=== PATIENT | female | born 1995 | race Caucasian/White ===

== ENCOUNTER → 2022-01-07 | Outpatient (CLI) | payer BC ==
--- NOTE | 2022-01-07 16:35 | Diagnostic Imaging Report ---
INDICATION: patient, survey. TECHNIQUE: Multiple Real-time grayscale images were obtained over the gravid uterus. COMPARISON: None. FINDINGS: A single live intrauterine fetus is seen measuring 19 weeks 4 days by composite measurements with a sonographic EDC of 05/30/2022. The fetus is in breech presentation at this time. The amniotic fluid appears qualitatively normal. The placenta is posterior with no evidence of previa. heart rate is 144 BPM. The cervical length is 3.7 cm. The distance from the placental tip to the internal os was 3.1 cm. The maternal adnexa were not well seen but showed no free fluid. The anatomical survey demonstrates normal appearing kidneys and bladder. A normal appearing stomach is seen. The intracranial ventricles appear normal. The four-chamber heart view appears normal. The three-vessel cord and cord insertion appear normal. Views of the spine are unremarkable. Biometrical measurements are as follows: Biparietal 4.53 cm, age 19 weeks 5 days. Head circumference 17.23 cm, age 19 weeks 6 days. Abdominal circumference 14.09 cm, age 19 weeks 4 days. Femur length 2.85 cm, age 18 weeks 6 days. Sonographic estimate age: 19 weeks 4 days. Sonographic estimated date of delivery: 05/30/2022. Estimated Weight: 280 gm (+/- 41 gm). LMP percentile: 26%. heart rate: 144 beats per minute. number: 1 of 1. IMPRESSION: Single live intrauterine fetus measuring 19 weeks 4 days in size with no detectable anatomic abnormality. Dictated by: Dictated on workstation # [id number]
== END ==
LOC: RAD 09:42
PROVIDERS: ATTEND Obstetrics & Gynecology
DX: Z34.82 Encounter for supervision of other normal pregnancy, second trimester (principal); Z3A.19 19 weeks gestation of pregnancy
CPT/HCPCS: 76805

== ENCOUNTER → 2022-03-05 | Outpatient (CLI) | payer BC, OTHER ==
--- NOTE | 2022-03-05 16:55 | Diagnostic Imaging Report ---
INDICATION: Prior history of 29 week demise TECHNIQUE: Multiple real-time grayscale images were obtained over the gravid uterus. COMPARISON: None FINDINGS: There is a single live intrauterine gestation in breech presentation. The cervix measures 3.4 cm in length. There is no endocervical fluid or funneling seen. The placenta is posterior without evidence of previa. The heart rate measures 129 BPM. The amniotic fluid index measures 17.3 cm. Anatomic survey was not performed at this time. Biometrical measurements are as follows: Biparietal 7.09 cm, age 28 weeks 4 days. Head circumference 26.23 cm, age 28 weeks 4 days. Abdominal circumference 22.60 cm, age 27 weeks 0 days. Femur length 5.16 cm, age 27 weeks 4 days. Sonographic estimate age: 28 weeks 0 days. Sonographic estimated date of delivery: 05/28/2022. Estimated Weight: 1074 gm (+/- 157 gm). LMP percentile: 27%. heart rate: 129 beats per minute. number: 1 of 1. IMPRESSION: 1. Single live intrauterine gestation measuring at 28 weeks and 0 days which is within range of the clinical dates. 2. Breech presentation. Dictated by: Dictated on workstation # [id number]
== END ==
LOC: RAD 10:00
PROVIDERS: ATTEND Obstetrics & Gynecology
DX: O32.1XX0 Maternal care for breech presentation, not applicable or unspecified (principal); Z3A.28 28 weeks gestation of pregnancy
CPT/HCPCS: 76805; 76819

== ENCOUNTER 2022-05-19 05:54 | Inpatient (IN) | payer OTHER ==
[2022-05-19] VITALS (31 sets, daily range): BP systolic 101–137; BP diastolic 6–107
[2022-05-19] MEDS ORDERED: D5 LR IV SOLUTION 1,000 ML IV SCH (06:15)
[2022-05-19 06:35] LABS: BILIRUBIN,URINE NEGATIVE (NEGATIVE); CLARITY,URINE CLEAR; COLOR,URINE YELLOW; GLUCOSE, URINE (UA) NEGATIVE (NEGATIVE); KETONES,URINE NEGATIVE (NEGATIVE); LEUKOCYTE ESTERASE ,URINE NEGATIVE (NEGATIVE); NITRITE,URINE NEGATIVE (NEGATIVE); PH,URINE 6.5 (5-9); PROTEIN,URINE NEGATIVE (NEGATIVE)
[2022-05-19 06:46] LABS: HEMATOCRIT 42 % (35-52); HEMOGLOBIN 14.3 g/dL (11.5-16.0); MEAN CORPUSCULAR HEMOGLOBIN 32 pg (25-34); MEAN CORPUSCULAR VOLUME 95 fL (80-99); WHITE BLOOD COUNT 11.4 10^3/uL (4.3-11.0)
[2022-05-19 06:47] LABS: BASOPHILS % (AUTO) 0 % (0-10); EOSINOPHILS % (AUTO) 0 % (0-10); LYMPHOCYTES # (AUTO) 1.5 10^3/uL (1.0-4.0); LYMPHOCYTES % (AUTO) 13 % (12-44); MEAN CORPUSCULAR HGB CONC 34 g/dL (32-36); MEAN PLATELET VOLUME 11.4 fL (9.0-12.2); MONOCYTES # (AUTO) 0.8 10^3/uL (0.0-1.0); MONOCYTES % (AUTO) 7 % (0-12); NEUTROPHILS # (AUTO) 8.9 10^3/uL (1.8-7.8); NEUTROPHILS % (AUTO) 78 % (42-75); PLATELET COUNT 191 10^3/uL (130-400)
[2022-05-19 06:47] LABS: BACTERIA,URINE NEGATIVE /HPF; RBC,URINE RARE /HPF; SQUAMOUS EPITHELIAL CELL,UR RARE /HPF; WBC,URINE RARE /HPF
--- NOTE | 2022-05-19 06:47 | History & Physical-OB/GYN ---
KARLASTAN 05/19/22 0647: OB - Chief Complaint & HPI Date/Time Date of Admission: Date of Admission: May 19, 2022 at 05:54 Date seen by a Provider: May 19, 2022 Time Seen by a Provider: 06:25 Chief Complaint/History OB-Reason for Admission/Chief: Induction of Labor Hx : 3 Hx Para: 1 Expected Date of Delivery: May 30, 2022 Gestational Age in Weeks: 38 Gestational Age in Days: 3 Indication for induction: other (hx of IUFD at 39 weeks) History of Labs A+ Antibody Neg VDRL NR HBsAg NR HIV NR G/C Neg RI GBS Neg Allergies and Home Medications Allergies Coded Allergies: amoxicillin (Verified Allergy, Unknown, 05/19/22) rash Patient Home Medication List Home Medication List Reviewed: Yes OB - History Hx of Present Care: Yes Ultrasounds: Normal mid trimester US Obstetrical Complications: None Medical Complications: None Information Induced Hypertension: No Maternal Gestational Diabetes: No Hemorrhage: No Obstetrical History Hx : 3 Hx Para: 1 Number of Living Children: 0 Hx Total # of Abortions (Spona: 1 Hx Stillbirth: Yes Hx Induced Hypertens: No Hx Maternal Gestational Diabet: No Hx Hemorrhage: No Patient Past Medical History Hypothyroidism, arthritis Social History/Family History Alcohol Use: Denies Use Recreational Drug Use: No Smoking Cessation: Never smoker Immunizations Influenza Vaccine Up-to-Date: No; Not Current Rubella: immune RPR/VDRL: Negative GBS Status: Negative HBsAG: Negative OB - Admission Exam Physical Exam HEENT: PERRLA Heart: Rhythm Normal Lungs: Clear Abdomen: Gravid Extremities: Edema Reflexes: Normal Heart Rate: 150's Accelerations: Accelerations Present Decelerations: No Decelerations Short Term Variability: Present Skilled Nursing Variability: Average (6-25) Contractions on Admission: 6-10 Minutes Apart Labs Laboratory Tests Test 05/19/22 06:05 05/19/22 06:20 Range/Units OB - Assessment/Plan/Diagnosis Assessment Assessment: induction of labor Admission Dx at 38 weeks 3 days gestational age IOL secondary to history of 39 week IUFD in previous GBS Neg Otherwise uncomplicated Admission Status: Inpatient Order (span 2 midnights) Reason for Inpatient Admission: IOL secondary to history of 39 week IUFD in previous Plan Plan: Induction TARA CARRASQUILLO DO 05/19/22 0911: Allergies and Home Medications Allergies Coded Allergies: amoxicillin (Verified Allergy, Unknown, 05/19/22) rash Supervisory-Addendum Brief Verification & Attestation Participated in pt care: history Personally performed: exam Care discussed with: Medical Student Procedures: n/a Results interpretation: Verified all documentation Verification and Attestation of Medical Student E/M Service A medical student performed and documented this service in my presence. I reviewed and verified all information documented by the medical student and made modifications to such information, when appropriate. I personally performed the physical exam and medical decision making. Tara Carrasquillo May 19, 2022,09:10 STAN ACOSTA May 19, 2022 06:47 TARA CARRASQUILLO DO May 19, 2022 09:11
[2022-05-19] MEDS ORDERED: OXYTOCIN PRE-MIX DRIP 500 ML IV SCH (07:45)
[2022-05-19] MEDS ORDERED: HYDROmorphone 2 MG/ML VIAL (DILAUDID) IV ONE (10:45)
[2022-05-19] MEDS ORDERED: ONDANSETRON 4 MG/2 ML (SDV) Z0FRAN IVP PRN (10:45)
[2022-05-19] MEDS ORDERED: LIDOCAINE 1% INJ 10 ML VIAL ONE (12:40)
[2022-05-19] MEDS: OXYTOCIN PRE-MIX DRIP 500 ML IV SCH ×2 (12:51→13:26)
[2022-05-19] MEDS ORDERED: DIBUCAINE 1% OINTMENT 28 GM TUBE TOP PRN (13:15)
[2022-05-19] MEDS ORDERED: WITCH HAZEL(TUCKS) 40 EA JAR TOP PRN (13:15)
[2022-05-19] MEDS ORDERED: MEASLES,MUMPS,RUBELLA 1 EA INJ SQ ONE (13:15)
[2022-05-19] MEDS ORDERED: NALOXONE 0.4 MG/ML 1 ML (NARCAN) VIAL IV PRN (13:15)
[2022-05-19] MEDS ORDERED: TETANUS,DIPTH,PERTUSS P/F (BOOSTRIX) 0.5 ML VIAL IM ONE (13:15)
[2022-05-19] MEDS ORDERED: BENZOCAINE/MENTHOL (DERMOPLAST) 56 ML CAN TP PRN (13:15)
--- NOTE | 2022-05-19 13:22 | OB Labor & Delivery Record ---
L&D History Date of Service Date of Service: May 19, 2022 History Expected Date of Delivery: May 30, 2022 Gestational Age in Weeks: 38 Hx : 3 Hx Para: 1 Complications Events: Routine care Operative Indications (Cesarea: N/A-Vaginal Delivery Intrapartal Events: None L&D Stage1 Stage One Onset of Labor - Date: May 19, 2022 Monitors and Tracing Monitor Mode: External Heart Rate: 120 Monitor Accelerations: Uniform Monitor Decelerations: Variable Station: 0 Mcfp Variability: Average (6-10) Short Term Variability: Present Presentation: Vertex Vital Signs VS - Last 72 Hours, by Label 05/19/22 05/19/22 05/19/22 05/19/22 07:00 07:30 07:45 08:00 Temp 36.7 36.8 Pulse 115 112 107 Resp 18 18 18 B/P (MAP) 114/71 (85) 124/78 (93) 101/68 (79) Pulse Ox 97 O2 Delivery Room Air Room Air Room Air Room Air 05/19/22 05/19/22 05/19/22 05/19/22 08:15 08:30 08:45 09:00 Pulse 101 96 100 98 Resp 18 18 18 18 B/P (MAP) 120/73 (89) 121/66 (84) 109/66 (80) 108/66 (80) O2 Delivery Room Air Room Air Room Air Room Air 05/19/22 05/19/22 05/19/22 05/19/22 09:15 09:30 09:45 10:00 Pulse 100 94 96 Resp 18 18 18 18 B/P (MAP) 111/72 (85) 116/76 (89) 119/71 (87) O2 Delivery Room Air Room Air Room Air Room Air 05/19/22 05/19/22 05/19/22 05/19/22 10:15 10:30 10:45 11:00 Temp 36.6 Pulse 85 90 85 Resp 18 18 18 18 B/P (MAP) 132/76 (94) 124/78 (93) 120/69 (86) O2 Delivery Room Air Room Air Room Air Room Air 05/19/22 05/19/22 11:15 11:30 Pulse 82 Resp 18 18 B/P (MAP) 119/6 (43) O2 Delivery Room Air Room Air Rupture of Membranes Amniotic Membrane Rupture Time: 0725 Amniotic Membrane Fluid Desc.: Clear Vaginal Bleeding Description: Normal Show Progress/Notes Patient admitted for IOL, AROM performed and Pitocin augmentation started. She progressed with a single dose of dilaudid 1 mg at 6cm to complete and +1 station L&D Stage2 Stage Two Stage II Date: May 19, 2022 Monitors and Tracing Monitor Mode: External Heart Rate: 120 Monitor Decelerations: Variable Staff Physical Therapy Assistant Variability: Average (6-10) Short Term Variability: Present Position: Right Occiput Anterior Presentation: Vertex Cord Descript/Complications Cord Vessel Description: 3 Vessels Delivery Type Infant Delivery Method: Spontaneous Vaginal Anterior Shoulder: Left Episiotomy/Perineal Laceration Laceraction(s)/Extensions: Yes Episiotomy Description: Perineal Extension/lac, 2nd degree Degree (describe repair) laceration repaired using 3-0 rapide in usual fashion Condition of Delivery 1 minute Comment: 9 5 minute Comment: 9 Notes Live male infant weight 7lbs 1 oz Condition of Condition of Infant: Living Exam: No Observed Abnormalities Resuscitation Resuscitation: N/A - Spontaneous Resp L&D Stage3 Stage Three Stage III Date: May 19, 2022 Pictocin Pitocin Administration mu/min: 6 Pitocin ml/hr: 6 Pitocin Administration Comment: 30 mu wide open after delivery of placenta Placenta Delivery Placenta Delivery: Spontaneous Delivery Summary Summary Estimated blood loss (mL): 350 Attending at delivery: Tara Carrasquillo DO Condition of Delivery Examined: Cervix Examined, Uterus Explored Post Hemorrhage: No Condition of Mother stable Condition of (s) stable TARA CARRASQUILLO DO May 19, 2022 13:22
--- NOTE | 2022-05-19 13:23 | Discharge Inst-Women's Service ---
Discharge Inst-Women's Serv Depart Medication/Instructions New, Converted or Re-Newed RX: Transmitted to Pharmacy Problems Reviewed?: Yes Consults/Follow Up Additional Follow Up: Yes Orders/Referrals Dr. Carrasquillo in 6 weeks Activity Activity: Activity as Tolerated NO SMOKING: NO SMOKING Nothing Inside Vagina: No Douching, No Tatums, No Tampons Diet Discharge Diet: No Restrictions Symptoms to Report to : Bleeding Excessive, Pain Increased, Fever Over 101 Degrees F, Vaginal Bleeding Increase, Questions/Concerns For Any Problems or Questions: Contact Your Physician TARA CARRASQUILLO DO May 19, 2022 13:23
[2022-05-19] MEDS ORDERED: DIBU30OI TOP (13:25)
[2022-05-19] MEDS ORDERED: IBUP-844 PO (13:25)
[2022-05-19] MEDS ORDERED: BENZ78AE5 TP (13:25)
[2022-05-19] MEDS ORDERED: DOCU100C37 PO (13:25)
[2022-05-19] MEDS ORDERED: ACET-93 PO (13:25)
[2022-05-19] MEDS ORDERED: CATHETER FLUSH 10 ML SYR IV SCH ×2 (14:00)
[2022-05-19] MEDS: IBUPROFEN 600 MG (MOTRIN) TAB PO SCH ×2 (15:16→20:47)
[2022-05-19] MEDS: ACETAMINOPHEN 500 MG TAB (TYLENOL) PO SCH ×2 (15:16→23:24)
[2022-05-19] MEDS: DOCUSATE SODIUM 100 MG (COLACE) CAP PO SCH (20:47)
[2022-05-20] MEDS: IBUPROFEN 600 MG (MOTRIN) TAB PO SCH ×3 (01:05→13:15)
[2022-05-20 03:45] VITALS: BP 141/76
--- NOTE | 2022-05-20 06:48 | Postpartum Progress Note ---
Note Note Day # 1 Subjective: Patient is without complaints. Ambulating, voiding. Tolerating a regular diet without nausea or vomiting. Normal lochia. Pain is well controlled with oral pain medications. Breast feeding. Objective: Patient seated in bed at time of evaluation, no signs of distress Physical Exam: General - Alert and oriented, no apparent distress Abdomen - Soft, appropriately tender to palpation, non-distended, fundus firm at umbilicus Extremities - no edema, negative Tre's bilaterally Assessment: PPD 1 s/p NVD Recovering well, hemodynamically stable Plan: Routine care. Encourage breast feeding. Encourage ambulation. Ferrous sulfate supplementation. Plan for discharge tomorrow. Vitals - Labs Vital Signs - I&O Vital Signs Date Time Temp Pulse Resp B/P (MAP) Pulse Ox O2 Delivery O2 Flow Rate FiO2 05/20/22 03:45 36.1 88 18 141/76 (97) 97 Room Air 05/19/22 23:23 36.0 86 16 117/65 (82) 97 Room Air 05/19/22 19:25 36.4 83 18 111/65 (80) 99 Room Air 05/19/22 15:15 36.4 126 18 127/58 (81) Room Air 05/19/22 15:00 96 18 112/67 (82) Room Air 05/19/22 14:45 98 18 115/59 (77) Room Air 05/19/22 14:30 96 18 137/69 (91) Room Air 05/19/22 14:00 101 18 112/79 (90) Room Air 05/19/22 13:45 86 18 111/60 (77) Room Air 05/19/22 13:30 92 18 116/78 (91) Room Air 05/19/22 13:15 130 18 127/107 (114) Room Air 05/19/22 13:00 87 18 127/93 (104) Room Air 05/19/22 12:45 36.4 88 18 120/69 (86) Room Air 05/19/22 12:30 88 18 118/72 (87) Room Air 05/19/22 12:15 88 18 118/72 (87) Room Air 05/19/22 12:00 71 18 128/85 (99) Room Air 05/19/22 11:45 76 18 126/86 (99) Room Air 05/19/22 11:30 82 18 119/67 (84) Room Air 05/19/22 11:15 18 Room Air 05/19/22 11:00 85 18 120/69 (86) Room Air 05/19/22 10:45 36.6 90 18 124/78 (93) Room Air 05/19/22 10:30 85 18 132/76 (94) Room Air 05/19/22 10:15 18 Room Air 05/19/22 10:00 96 18 119/71 (87) Room Air 05/19/22 09:45 94 18 116/76 (89) Room Air 05/19/22 09:30 100 18 111/72 (85) Room Air 05/19/22 09:15 18 Room Air 05/19/22 09:00 98 18 108/66 (80) Room Air 05/19/22 08:45 100 18 109/66 (80) Room Air 05/19/22 08:30 96 18 121/66 (84) Room Air 05/19/22 08:15 101 18 120/73 (89) Room Air 05/19/22 08:00 Room Air 05/19/22 07:45 107 18 101/68 (79) Room Air 05/19/22 07:30 36.8 112 18 124/78 (93) Room Air 05/19/22 07:00 36.7 115 18 114/71 (85) 97 Room Air I & O 05/20/22 07:00 Intake Total 1000 ml Balance 1000 ml Labs Laboratory Tests 05/20/22 06:08: STAN ACOSTA 22, 2023 06:48
[2022-05-20 06:50] LABS: BASOPHILS % (AUTO) 0 % (0-10); EOSINOPHILS % (AUTO) 0 % (0-10); HEMATOCRIT 39 % (35-52); LYMPHOCYTES % (AUTO) 15 % (12-44); MEAN CORPUSCULAR HEMOGLOBIN 32 pg (25-34); MEAN CORPUSCULAR HGB CONC 34 g/dL (32-36); MEAN CORPUSCULAR VOLUME 95 fL (80-99); MEAN PLATELET VOLUME 11.4 fL (9.0-12.2); MONOCYTES # (AUTO) 0.9 10^3/uL (0.0-1.0); MONOCYTES % (AUTO) 7 % (0-12); NEUTROPHILS # (AUTO) 10.5 10^3/uL (1.8-7.8); NEUTROPHILS % (AUTO) 77 % (42-75); PLATELET COUNT 184 10^3/uL (130-400); WHITE BLOOD COUNT 13.5 10^3/uL (4.3-11.0)
[2022-05-20] MEDS ORDERED: PRENATAL VITAMIN 1 EA TAB PO SCH (07:00)
[2022-05-20 08:45] VITALS: BP 114/69
[2022-05-20] MEDS: DOCUSATE SODIUM 100 MG (COLACE) CAP PO SCH (08:53)
[2022-05-20] MEDS ORDERED: FERROUS SULF 325 MG (IRON) TAB PO SCH (09:00)
[2022-05-20 13:15] VITALS: BP 123/65
[2022-05-20 17:45] VITALS: BP 119/78
[2022-05-20 18:45] VITALS: BP 119/78
== END 2022-05-20 18:45 | disposition home or self-care (01) | DRG 807 ==
LOC: LDRP 05:54
PROVIDERS: ADMIT Obstetrics & Gynecology; ATTEND Obstetrics & Gynecology
PROC: 10E0XZZ Delivery of Products of Conception, External Approach (ICD-10-PCS; principal; 2022-05-19)
PROC: 0KQM0ZZ Repair Perineum Muscle, Open Approach (ICD-10-PCS; 2022-05-19)
PROC: 10907ZC Drainage of Amniotic Fluid, Therapeutic from Products of Conception, Via Natural or Artificial Opening (ICD-10-PCS; 2022-05-19)
PROC: 4A1HXFZ Monitoring of Products of Conception, Cardiac Rhythm, External Approach (ICD-10-PCS; 2022-05-19)
PROC: 3E033VJ Introduction of Other Hormone into Peripheral Vein, Percutaneous Approach (ICD-10-PCS; 2022-05-19)
DX: O76 Abnormality in fetal heart rate and rhythm complicating labor and delivery (principal); Z37.0 Single live birth; O70.1 Second degree perineal laceration during delivery; Z3A.38 38 weeks gestation of pregnancy
CPT/HCPCS: 36415; 81000; 85025; 86780; 86850; 86900; 86901